=== PATIENT | female | born 1995 | race Two or more races ===

== ENCOUNTER 2019-10-18 13:17 | Observation (INO) | payer MEDICAID, OTHER ==
[~2019-10-18] VITALS: Ht 165.1 cm; Wt 79.4 kg
[2019-10-18 13:44] VITALS: BP 112/66
[2019-10-18] MEDS ORDERED: PREN-96 PO (14:32)
[2019-10-18] MEDS ORDERED: TERBUTALINE SULFATE 1 MG/ML 1ML VIAL SC ONE ×2 (14:45→14:47)
== END 2019-10-18 16:42 | disposition home or self-care (01) | DRG 566 ==
LOC: ER 13:17 → EDBD 13:17 → LDRP 14:03
PROVIDERS: ADMIT Specialist; ATTEND Specialist
DX: O26.892 Other specified pregnancy related conditions, second trimester (principal); R10.9 Unspecified abdominal pain; Z3A.22 22 weeks gestation of pregnancy
CPT/HCPCS: G0378; J3105; 59025; 81002; 96372

== ENCOUNTER 2019-11-11 18:42 | Observation (INO) | payer SELFPAY ==
[~2019-11-11 18:42] MED LIST: PREN-96 PO
== END 2019-11-11 20:42 | disposition home or self-care (01) | DRG 833 ==
LOC: LDRP 18:42
PROVIDERS: ADMIT Specialist; ATTEND Specialist
DX: O26.852 Spotting complicating pregnancy, second trimester (principal); Z3A.24 24 weeks gestation of pregnancy
CPT/HCPCS: 59025; 81002; G0378

== ENCOUNTER 2020-02-17 02:08 | Observation (INO) | payer MEDICAID ==
[~2020-02-17] VITALS: Ht 162.6 cm; Wt 90.7 kg
[2020-02-17] MEDS: TERBUTALINE SULFATE 1 MG/ML 1ML VIAL SC SCH ×2 (03:01→03:21)
== END 2020-02-17 03:52 | disposition home or self-care (01) ==
LOC: LDRP 02:08
PROVIDERS: ADMIT Obstetrics & Gynecology; ATTEND Obstetrics & Gynecology
DX: O62.9 Abnormality of forces of labor, unspecified (principal); O60.03 Preterm labor without delivery, third trimester; Z3A.39 39 weeks gestation of pregnancy
CPT/HCPCS: 59025; 81002; 96372; G0378; J3105

== ENCOUNTER → 2024-11-10 | Day surgery (SDC) | payer MEDICAID ==
--- NOTE | 2024-11-07 13:49 | DVHHP ---
ADMIT DATE: 11/10/2024 CHIEF COMPLAINT: Desires bilateral tubal ligation. HISTORY OF PRESENT ILLNESS: The patient is a 29-year-old 3, para 3, admitted for laparoscopic placement of Filshie clip. The patient denies having any other issues. The patient wants to proceed with bilateral tubal ligation. Risks, complications, and failure rate discussed with the patient. Options were reviewed. All questions answered. The patient fully understands. She wishes to proceed with the planned procedure. PAST MEDICAL HISTORY: None. PAST SURGICAL HISTORY: x3. SOCIAL HISTORY: None. FAMILY HISTORY: None. OBSTETRIC AND GYNECOLOGIC HISTORY: Three section. ALLERGIES: No known drug allergies. REVIEW OF SYSTEMS: Consistent with HPI. PHYSICAL EXAMINATION: VITAL SIGNS: Stable, afebrile. HEENT: Within normal limits. CARDIOVASCULAR: Regular rate and rhythm. LUNGS: Clear to auscultation. BREASTS: Symmetrical. No masses. ABDOMEN: Soft, nontender. PELVIC: External genitalia within normal limits. Vagina normal. Cervix grossly normal appearing. Uterus 8-week size. Adnexa nonpalpable. EXTREMITIES: No clubbing, cyanosis, or edema. IMPRESSION: * Multiparity, desires tubal sterilization. * Morbid obesity. PLAN: Laparoscopic placement of Filshie clips. Informed consent obtained. Risks and complications of surgery including infection, bleeding, hematoma formation, injury to bowel or bladder, surrounding organ, possibility of DVT, pulmonary embolism, and risks of anesthesia discussed with the patient. Options reviewed. All questions answered. The patient fully understands. She wishes to proceed with the planned procedure. DO JIMBO Estrella/RAYRYA/ZULEYMA TID: [id number] RECEIPT: [id number]
[~2024-11-10] VITALS: Ht 160 cm; Wt 102.1 kg
[~2024-11-10] MED LIST changes: +BUPIVACAINE 0.5% P/F INJ 10 ML VIAL ONE; +CHOL400T13 PO; +DOCU-94 PO; +FERR-7 PO; +HYDR-4072 PO; +HYDROmorphone HCL 2 MG/ML VL/or syr IV PRN; +HYDROmorphone HCL 2 MG/ML VL/or syr ONE; +IBUP-1456 PO; +KETAMINE 50mg/ML 1ml syringe ONE; +KETOROLAC TROMETH 30 MG/ML 1ML VIAL IV ONE; +LACTATED RINGER'S 1,000 ML IV SCH; +LEVO25TA6 PO; +LIDOCAINE 1% INJ PF 5ML AMP ONE; +LIDOCAINE HCL 2% TOP JELLY 5ML TOP ONE; +LIDOCAINE W/ EPINEPHRINE 1% 20ML VIAL ONE; +METOCLOPRAMIDE HCL 5MG/ml INJ 2ml VIAL IV ONE; +MIDAZOLAM HCL 2MG/2ML 2ml VIAL (1mg/ml) ONE; +MORPHINE SULFATE 4 MG/ML SYR/VIAL IV PRN; +MORPHINE SULFATE INJ 2 MG/ml SYRG IV PRN; +ONDANSETRON HCL 4 MG/2 ML VIAL IV PRN; -PREN-96 PO; +PROPOFOL 10 MG/ML 20 ML IV ONE; +ROCURONIUM 10MG/ML 10ML VIAL IV ONE; +SODIUM CHLORIDE LOCK 10 ML ONE; +SUCCINYLCHOLINE CHLORIDE 20 MG/ML 10ML VIAL IV ONE; +SUGAMMADEX 200mg/2ml Vial (100MG/ML) IV ONE; +ceFAZolin 2 GM/D5W50ml 50 ML IV ONE; +fentaNYL CITRATE 100 MCG/2 ML VL ONE
[2024-11-10 08:09] VITALS: PULSE 101; RESP 22; O2SAT 95
[2024-11-10 08:45] VITALS: BP 144/91; PULSE 99; RESP 15; O2SAT 99
--- NOTE | 2024-11-10 13:17 | DVHOP2 ---
Operative Report DATE OF OPERATION: 11/10/24 PREOPERATIVE DIAGNOSES: 1. Desires elective tubal sterilization. 2. morbid obesity POSTOPERATIVE DIAGNOSES: 1. Desires elective tubal sterilization. 2. morbid obesity 3-left ovarian cyst SURGEON: Florecita Dorsey D.O./soheila and dr coles ANESTHESIOLOGIST: ankit TYPE OF ANESTHESIA : General. CONSENT: The patient was informed of the risks and benefits of the procedure. The patient was informed of the risks and benefits of the procedure. These include but are not limited to , complications of anesthesia, postoperative infection, incomplete relief of symptoms, recurrence of symptoms, damage to blood vessels, nerves and tendons, deep venous thrombosis, pulmonary embolism and possible need for repeat surgery in the future. FINDINGS: Cervix is grossly normal appearing. Uterus is 10 weeks' size. Adnexa nonpalpable. COMPLICATIONS: None. BLOOD PRODUCTS USED: None. PROCEDURES: Laparoscopic placement of Filschi Clips to bilateral tubes,aspiration of left ovarian cyst PROCEDURE IN DETAIL: The patient was taken to the operating room where she was placed under general anesthesia. The patient was then prepped and draped in the usual sterile manner in the dorsal lithotomy position. The bladder was emptied using a straight catheter. Examination under anesthesia revealed the above find ings. A weighted speculum was placed in the vagina. The anterior lip of the cervix was grasped using single-tooth tenaculum. Cervix was dilated. Uterus sounded to 10 cm. HUMI catheter was placed. Attention was then turned to the abdomen where a Veress needle was introduced. Abdomen was distended with 3L of CO2 gas. Using Visiport, abdomen was entered under direct visualization. Survey of abdominal cavity revealed normal finding. A 8 mm trocar was placed into the suprapubic region. Filshie clip was then loaded on the right tube as well as the left. No bleeding was noted. there was a left ovarian simple cyst that was aspirated. All the instruments were removed from the abdomen and pelvis. CO2 gas released. Incisional ports were closed using #4-0 Vicryl and herbert for the larger port. The patient tolerated the procedure well. All instruments were removed from the patient's cervix. The patient was taken to the recovery room in a stable condition. ESTIMATED BLOOD LOSS: 20 mL Visit Coding OBGYN Date of Service: Nov 10, 2024 Billing Provider: FLORECITA DORSEY DO ENGINEER BYPRODUCT Common Visit Codes: 32984-[id number] OBS CARE (HIGH) ENGINEER BYPRODUCT Procedure Codes: 06709-OYZ.SURG:ON OVIDUCT/OVARY FLORECITA DORSEY DO Nov 10, 2024 13:17
--- NOTE | 2024-11-10 13:20 | POSTOP ---
Post-Operative Note Post-Operative Note Preop Diagnosis desires tubal sterilization,morbid obesity Postop Diagnosis: desires tubal ligation,morbid obesity,left ovarian cyst Operation performed laparoscopic placement of filschie clips,aspiration of left ovarian cyst Specimen na Anesthesia: General Anesthesiologist: ankit Blood Loss(fluid mgmt) 20ml Surgeon Florecita Dorsey Cadmium Liquor Maker dr sharyn parnell Implant filschie Complications & Mgmt none Date 11/10/24 Time 13:17 Visit Coding OBGYN Date of Service: Nov 10, 2024 Billing Provider: FLORECITA DORSEY DO CAKE PRESS OPERATOR Common Visit Codes: 82745-[id number] OBS CARE (HIGH) CAKE PRESS OPERATOR Procedure Codes: 20447-IAQ.SURG:ON OVIDUCT/OVARY FLORECITA DORSEY DO Nov 10, 2024 13:20
--- NOTE | 2024-11-10 13:23 | DVHDS2 ---
Physician Discharge Progress N Final Diagnosis: desires tubal ligation,morbid obesity,left ovarian cyst Operations or Procedures: Operations or Procedures laparoscopic placement of filschie clips,aspiration of left ovarian cyst Condition on Discharge: Good Disposition: Home Discharge Instructions: Diet: Regular Activity: Light activity Follow Up/Referral: next wed 10am Medications: zofrmonica,norco Follow Up Care: Specialist: 1w Discharge Statement: "Patient was advised to return to the ER or call 911 if any headaches, dizziness, shortness of breath, chest pain, abdominal pain, bleeding, fevers, or worsening of medical condition. Patient was counseled about treatment plan, medications, possible side effects, patientverbalized understanding. All questions were answered to the best of my ability. This discharge took greater then 30 minutes in planning, reviewing documentation, counseling the patient, and discussing with other team members." Visit Coding OBGYN Date of Service: Nov 10, 2024 Billing Provider: SARABJIT CANO DO HEARING AID ASSEMBLY SUPERVISOR Common Visit Codes: 17861-[id number] OBS CARE (HIGH), 58882-PUQ/OBS DISCH DAY <30MIN, 76798-RUZ/OBS DISCH DAY >30MIN HEARING AID ASSEMBLY SUPERVISOR Procedure Codes: 14080-CKB.SURG:ON OVIDUCT/OVARY SARABJIT CANO DO Nov 10, 2024 13:23
== END | disposition home or self-care (01) ==
LOC: SUR 06:14
PROVIDERS: ATTEND Obstetrics & Gynecology
DX: Z30.2 Encounter for sterilization (principal); N83.202 Unspecified ovarian cyst, left side; E66.01 Morbid (severe) obesity due to excess calories; E03.9 Hypothyroidism, unspecified; Z68.39 Body mass index [BMI] 39.0-39.9, adult; Z64.1 Problems related to multiparity; Z79.899 Other long term (current) drug therapy; Z98.891 History of uterine scar from previous surgery
CPT/HCPCS: 49322; 58671; 86850; 86900; 86901; A4264; J0330; J0690; J1171; J2250; J2704; J3010; J3490